=== PATIENT | female | born 1990 | race Caucasian/White ===

== ENCOUNTER 2017-06-15 01:18 | Emergency (ER) | payer BC, OTHER ==
[~2017-06-15] VITALS: Ht 154.9 cm; Wt 127.4 kg
[2017-06-15 01:25] VITALS: TEMP 36.9; Ht 154.9 cm; Wt 127.4 kg
[2017-06-15] MEDS ORDERED: ONDANSETRON INJ 2 MG/ML 2 ML VIAL IV STA (01:38)
[2017-06-15] MEDS ORDERED: SODIUM CHLORIDE 0.9% 1000ML 1,000 ML IV STA (01:38)
[2017-06-15] MEDS ORDERED: LEVO50TA6 PO (01:49)
[2017-06-15] MEDS ORDERED: DIPH25CA5 PO (01:49)
[2017-06-15] MEDS ORDERED: GUAI1TAB69 PO (01:49)
[2017-06-15] MEDS ORDERED: CHOL1TAB42 PO (01:49)
[2017-06-15] MEDS ORDERED: BENTYL HOME PACK 10 MG VIAL PO ONE (02:00)
[2017-06-15] MEDS ORDERED: ONDANSETRON HOME PACK 4MG OD TAB PO ONE (02:00)
[2017-06-15] MEDS ORDERED: DICYCLOMINE HCL 10 MG/ML 2 ML AMP IM ONE (02:00)
[2017-06-15 02:25] LABS: BASO % 0.2 %; BASO ABS # 0.01 K/uL (0-0.2); EOS % 0.2 %; EOS ABS # 0.01 K/uL (0-0.5); HEMATOCRIT 41.5 % (37-47); HEMOGLOBIN 14.1 g/dL (12.0-16.0); IG# 0.01 K/uL (0.00-0.02); LYMPH % 14.2 %; LYMPH ABS # 0.75 K/uL (1.2-3.4); MEAN CELL VOLUME 81.1 fL (80-100); MEAN CORPUSCULAR HEMOGLOBIN 27.5 pg (25-34); MONO % 8.7 %; MONO ABS # 0.46 K/uL (0.11-0.59); NEUT % 76.5 %; NEUT ABS # 4.04 K/uL (1.4-6.5); PLATELET COUNT 197 K/uL (130-400); RED CELL DISTRIBUTION WIDTH CV 13.4 % (11.5-14.5); RED CELL DISTRIBUTION WIDTH SD 40.4 fL (36.4-46.3); WHITE BLOOD COUNT 5.28 K/uL (4.8-10.8)
[2017-06-15] MEDS ORDERED: ONDANSETRON 4MG OD TAB PO ONE ×2 (02:30→03:30)
[2017-06-15 02:50] LABS: ALBUMIN 4.1 gm/dl (3.4-5.0); CALCIUM 9.1 mg/dl (8.5-10.1); CREATININE 0.79 mg/dl (0.60-1.20); POTASSIUM 3.7 mmol/L (3.5-5.1)
[2017-06-15 02:52] LABS: TOTAL PROTEIN 8.2 gm/dl (6.4-8.2)
[2017-06-15] MEDS ORDERED: DICYCLOMINE HCL 20 MG TAB PO STA (03:23)
[2017-06-15] MEDS ORDERED: DICYCLOMINE HCL 10 MG CAP ONE (03:49)
--- NOTE | 2017-06-15 03:58 | EMERGENCY ROOM VISIT NOTE ---
History First contact with patient: 01:34 Chief Complaint: FLU LIKE SX Stated Complaint: FLU,HIVES,RASH,FEVER,VOMITING History of Present Illness The patient is a 27 year old female who presents to the Emergency Room with complaints of nausea, vomiting, diarrhea and abdominal crampiness for the past day. Enriqueta is sick with similar symptoms. They are returning home from [facility]. Patient denies fevers, cough, chest pain, dyspnea, neck stiffness, sore throat. No recent antibiotics. Review of Systems An 10 system review of systems was completed with positives and pertinent negatives listed in the HPI. Past Medical/Surgical History None Social History Smoking Status: Never Smoker Current/Historical Medications Scheduled Cholecalciferol (Vitamin D), 5,000 UNITS PO WK Levothyroxine Sodium (Levothyroxine Sodium), 50 MCG PO QAM Scheduled PRN Diphenhydramine Hcl (Benadryl), 25 MG PO DIRECTED PRN for CONGESTION Guaifenesin (Mucinex Maximum Strength), 1 TAB PO BID PRN for CONGESTION Physical Exam Vital Signs Date Time Temp Pulse Resp B/P (MAP) Pulse Ox O2 Delivery O2 Flow Rate FiO2 06/15/17 03:06 101 18 160/77 96 Room Air 06/15/17 01:25 36.9 108 18 137/106 99 Room Air Physical Exam VITALS: Vitals are noted on the nurse's note and reviewed by myself. Vital signs hypertensive GENERAL: White female, in no acute distress, nondiaphoretic, well-developed well -nourished. SKIN: Sunburn to chest and legs; the rest of the skin was without rashes, erythema, edema, or bruising. There is no tenting of the skin. Capillary reflex less than 2 seconds. HEAD: Normocephalic atraumatic. EARS: External auditory canals clear, tympanic membranes pearly cox without erythema or effusion bilaterally. EYES: Pupils equal round and reactive to light and accommodation. Conjunctivae without injection, sclerae without icterus. Extraocular movements intact. NOSE: Patent, turbinates without inflammation or discharge. MOUTH: Mucous membranes moist. Pharynx without erythema or exudate. Uvula midline. Airway patent. Tongue does not deviate. NECK: Supple without nuchal rigidity. No lymphadenopathy. No thyromegaly. Cervical spine is nontender. No JVD. HEART: Regular rate and rhythm without murmurs gallops or rubs. LUNGS: Clear to auscultation bilaterally without wheezes, rales or rhonchi. No dullness to percussion. No retractions or accessory muscle use. ABDOMEN: Positive bowel sounds x 4. Normal tympanic percussion. Soft, protuberant, obese, no CVA tenderness, nontender, without masses or organomegaly. Tyler sign negative. No guarding or rebound tenderness. MUSCULOSKELETAL: No muscle atrophy, erythema, noted. NEURO: Patient was alert and oriented to person place and time. Normal sensation to light and sharp touch. No focal neurological deficits. Medical Decision & Procedures Laboratory Results 06/15/17 02:14 Red Blood Count 5.12, Mean Corpuscular Volume 81.1, Mean Corpuscular Hemoglobin 27.5, Mean Corpuscular Hemoglobin Concent 34.0, Mean Platelet Volume 10.0, Neutrophils (%) (Auto) 76.5, Lymphocytes (%) (Auto) 14.2, Monocytes (%) (Auto) 8.7, Eosinophils (%) (Auto) 0.2, Basophils (%) (Auto) 0.2, Neutrophils # (Auto) 4.04, Lymphocytes # (Auto) 0.75, Monocytes # (Auto) 0.46, Eosinophils # (Auto) 0.01, Basophils # (Auto) 0.01 06/15/17 02:14 Test 06/15/17 02:14 06/15/17 02:25 White Blood Count 5.28 K/uL (4.8-10.8) Red Blood Count 5.12 M/uL (4.2-5.4) Hemoglobin 14.1 g/dL (12.0-16.0) Hematocrit 41.5 % (37-47) Mean Corpuscular Volume 81.1 fL (80-100) Mean Corpuscular Hemoglobin 27.5 pg (25-34) Mean Corpuscular Hemoglobin Concent 34.0 g/dl (32-36) Platelet Count 197 K/uL (130-400) Mean Platelet Volume 10.0 fL (7.4-10.4) Neutrophils (%) (Auto) 76.5 % Lymphocytes (%) (Auto) 14.2 % Monocytes (%) (Auto) 8.7 % Eosinophils (%) (Auto) 0.2 % Basophils (%) (Auto) 0.2 % Neutrophils # (Auto) 4.04 K/uL (1.4-6.5) Lymphocytes # (Auto) 0.75 K/uL (1.2-3.4) Monocytes # (Auto) 0.46 K/uL (0.11-0.59) Eosinophils # (Auto) 0.01 K/uL (0-0.5) Basophils # (Auto) 0.01 K/uL (0-0.2) RDW Standard Deviation 40.4 fL (36.4-46.3) RDW Coefficient of Variation 13.4 % (11.5-14.5) Immature Granulocyte % (Auto) 0.2 % Immature Granulocyte # (Auto) 0.01 K/uL (0.00-0.02) Anion Gap 10.0 mmol/L (3-11) Est Creatinine Clear Calc Drug Dose 135.6 ml/min Estimated GFR () 119.7 Estimated GFR (Non- 103.3 BUN/Creatinine Ratio 13.6 (10-20) Calcium Level 9.1 mg/dl (8.5-10.1) Total Bilirubin 0.7 mg/dl (0.2-1) Direct Bilirubin 0.1 mg/dl (0-0.2) Aspartate Amino Transf (AST/SGOT) 13 U/L (15-37) Alanine Aminotransferase (ALT/SGPT) 25 U/L (12-78) Alkaline Phosphatase 62 U/L (45-117) Total Protein 8.2 gm/dl (6.4-8.2) Albumin 4.1 gm/dl (3.4-5.0) Human Chorionic Gonadotropin, Qual NEG (NEG) Urine Test NEG (NEG) Medications Administered Medications (Trade) Dose Ordered Sig/Arely Route Start Time Stop Time Status Last Admin Dose Admin Ondansetron HCl (Zofran Odt) 4 mg ONE ONCE PO 06/15/17 02:30 06/15/17 02:31 DC 06/15/17 02:25 4 MG Ondansetron HCl (Zofran Odt) 4 mg ONE ONCE PO 06/15/17 03:30 06/15/17 03:31 DC 06/15/17 03:20 4 MG ED Course Prior records/ancillary studies reviewed. Triage Nursing notes reviewed. Additional history obtained from the family. The patient's history was concerning for nausea, vomiting, diarrhea, and abdominal pain. Differential diagnosis: Etiologies such as gastroenteritis, food borne illness, infections, appendicitis , diverticulitis, inflammatory bowel disease, obstruction, GI bleed, biliary pathology, as well as others were entertained. Physical examination findings: As above. Abdominal examination revealed no tenderness. Vital signs reviewed and revealed stable. ER treatment provided: P.o. fluids, Zofran, Bentyl On reassessment the patient felt better. Patient was tolerating p.o. intake. Diagnostics interpretation by me: The labs revealed no worrisome leukocytosis or electrolyte abnormality. Negative hCG Nurse tried twice for an IV and was unsuccessful. Patient will try p.o. fluids This appears to be consistent with vomiting and diarrhea most likely viral in etiology. Enriqueta is sick with similar symptoms. They just returned home from [facility]. They most likely picked up a virus while there. Patient did not have an acute abdomen on exam. Patient was well-appearing. Patient was advised to do a clear liquid diet today and then progress to tolerate a bland diet tomorrow. Patient was advised follow-up family can a few days here in the ER sooner for abdominal pain, fevers, vomiting, worsening sinus symptoms or as needed. Patient was tolerating fluids and felt much better. Patient ambulated out of the ER without difficulties with the onset. By the evaluation outlined above emergent etiologies such as appendicitis, diverticulitis, obstruction, cardiac sources, mesenteric ischemia, aortic pathology, inflammatory bowel disease, renal colic, PUD, biliary pathology, UTI, as well as others were deemed relatively unlikely. The pt informed about the findings as listed above. All questions were answered and pleased with the treatment. Return instructions were outlined and the patient was discharged in stable condition. Outpatient prescription management: Zofran, Bentyl Referral: The patient was referred to their primary care physician for follow-up in 2 to 3 days for a recheck of the current condition. Medical Decision as above Medication Reconcilliation Current Medication List: was personally reviewed by me Blood Pressure Screening Patient's blood pressure: Elevated blood pressure Blood pressure disposition: Elevated BP felt to be situational Impression Primary Impression: Nausea vomiting and diarrhea Additional Impression: Sunburn Departure Information Dispostion Home / Self-Care Condition GOOD Referrals No Doctor, Assigned (PCP) Patient Instructions [facility] Additional Instructions Bentyl tablets 10mg: Take one every six hours as needed for abdominal cramping. Zofran(odansetron) tablets 4mg: Take one and allow it to dissolve in your mouth every four to six hours as needed for nausea or vomiting. Ibuprofen(Motrin, Advil) may be used for fever or pain. Use 600mg every six hours as needed. Take with food. Avoid using more than 2400mg in a 24 hour period. Do not use 2400mg per day for more than three consecutive days without physician direction. Prolonged inappropriate use can lead to stomach upset or ulcers. (AND/OR) Acetaminophen(Tylenol) may be used for fever or pain. Use 1000mg every six hours as needed. Avoid using more than 3000mg in a 24 hour period. Rest and drink plenty of fluids as tolerated. Slow sips of water or sports drinks are recommended instead of large amounts all at once. Continue current medications. Once your stomach is settled start with a clear liquid diet (jello, soup broth, etc.) and then advance as tolerated. You should avoid full, heavy meals for about 24 hrs from the time your symptoms resolved. Return to the ER for persistent vomiting, fevers, abdominal pain, chest pains, difficulty breathing, black or bloody stools, worsening of your condition, or as needed. Follow up with your primary physician in 2-3 days for a recheck of your current condition. Problem Qualifiers
[2017-06-15] MEDS ORDERED: DICY10CA55 PO (04:14)
[2017-06-15] MEDS ORDERED: ONDA4TAB10 SL (04:14)
[2017-06-15] MEDS ORDERED: ONDANSETRON HOME PACK 4MG OD TAB ONE (04:15)
[2017-06-15] MEDS ORDERED: BENTYL HOME PACK 10 MG VIAL ONE (04:16)
[2017-06-15 04:20] VITALS: BP 156/87; PULSE 105; O2SAT 96
== END 2017-06-15 04:20 | disposition home or self-care (01) ==
LOC: C.EDB 01:20
DX: R11.2 Nausea with vomiting, unspecified (principal); R19.7 Diarrhea, unspecified; L55.9 Sunburn, unspecified; Z79.899 Other long term (current) drug therapy